=== PATIENT | male | born 1975 | race Caucasian/White ===

== ENCOUNTER 2020-06-08 09:07 | Outpatient (CLI) | payer BC, SELFPAY ==
--- NOTE | 2020-06-23 15:04 | WPDHOMESLEEP ---
Sleep Study - Home Unattended Date of Study: 06/08/20 Ordering Provider: Hugo Brown PA-C Interpreting Provider: Susannah French MD Home Sleep Study Type: Apnea Link Air Height: 1.88 m Weight: 145.15 kg Body Mass Index: 41.1 Neck Circumference (inches): 17 [place]: 9 Reason for Sleep Study Loud snoring, poor sleep, panic attacks Sleep History Alexandre Moore is a 44 year old male who has difficulty sleeping and wakes with panic attacks. He has tried medications which have not helped. He constantly snores and it is frequently loud enough the others others complain about it. He does not awaken at night with heartburn, belching or coughing. Does not awaken from sleep feeling short of breath. He frequently has trouble sleeping with a cold. He rarely wakes up gasping for breath at night. He frequently has breathing problems at night witnessed by others. He occasionally sweats excessively at night he does not notice his heart pounding or beating irregularly at night. He occasionally falls asleep during the day, rarely involuntarily and never while driving. He does not fall asleep while exerting physical effort. He does not have loss of muscle tone with strong emotion. He does not have daytime difficulties due to excessive sleepiness. He does not feel paralyzed on waking or falling asleep nor does he have vivid dreamlike scenes upon awakening or falling asleep. He does not feel afraid to go to sleep. He does not have nightmares. He does not remember his dreams. He does not have racing thoughts. He occasionally feels sad, depressed and anxious. He rarely has muscular tension. He occasionally notices parts of his body jerking. He occasionally kicks at night. He does not have crawling or aching feelings in his legs nor does he have any kind of leg pain at night. He does not have morning jaw pain. He does not grind his teeth during sleep, is not bothered by pain during the day, and does not awaken at night due to pain. He does not wake up feeling stiff in the morning with sore or achy muscles , rarely wakes with pain in the spine. Normal bedtime is 10:00 p.m. falling asleep within 5 minutes to 35 minutes waking once at night for few minutes. He awakens around 2-3 in the morning. He wakes for the day at 4:45 a.m.. On the weekends he may go to bed earlier or later, and wakes later, 7:00 am. He estimates getting 6 hours of sleep at night. he does not generally take naps. A short nap may be refreshing. He feels better in the afternoon compared to earlier in the day. Habits: never smoked tobacco. Caffeine: 2 cups a day. [facility] Past Medical History Medical History Allergies Anxiety Asthma Chronic GERD Hypertension Migraine Family History Family History Father Hypertension Social History Social History Smoking status: Never smoker Alcohol intake: current Substance use: current Medications Home Medications Medication Instructions Recorded Confirmed Type nebivolol 5 mg tablet 5 mg PO DAILY 05/04/20 05/06/20 History amitriptyline 100 mg tablet 25 mg PO .QHS tablet 05/06/20 05/06/20 History celecoxib 200 mg capsule 200 mg PO DAILY cap 05/06/20 05/06/20 History rizatriptan 10 mg tablet 10 mg PO .COMPLEX PRN tablet 05/06/20 05/06/20 History hydrochlorothiazide 25 mg tablet 25 mg PO DAILY #90 tablet 05/12/20 Rx Sleep Procedure This test was performed using 4 channel monitoring including respiratory effort channel, snoring channel, heart rate channel, and oxygen saturation channel. This study was scored using CMS guidelines. Sleep Architecture Not applicable for home sleep test. Respiratory Analysis the recording time is 9 hours 33 minutes. Evaluation time is 9 hours 21 minutes. The apnea-hypopnea index is 15, moderately elevated.
[2020-06-23 15:08] VITALS: BMI 41.1
== END 2020-06-08 09:08 | disposition home or self-care (01) ==
LOC: ANHCSM 09:08
PROVIDERS: PCP Physician Assistant; Visit Provider Physician Assistant
DX: G47.33 Obstructive sleep apnea (adult) (pediatric) (principal)
CPT/HCPCS: 95806

== ENCOUNTER → 2020-07-29 03:31 | Outpatient (CLI) | payer BC, SELFPAY ==
[2020-07-29 19:43] LABS: SARS-CoV-2 RNA PCR Negative
== END ==
PROVIDERS: PCP Internal Medicine; Visit Provider Internal Medicine Critical Care Medicine
DX: Z01.812 Encounter for preprocedural laboratory examination (principal); Z20.822 Contact with and (suspected) exposure to COVID-19
CPT/HCPCS: C9803; U0003; U0005

== ENCOUNTER 2020-08-01 08:40 | Outpatient (CLI) | payer BC, SELFPAY ==
--- NOTE | 2020-08-18 09:15 | WPDSLEEPSTUD ---
Sleep Study Date of Study: 08/01/20 Ordering Provider: Hugo Brown PA-C Interpreting Physician: Susannah French MD Sleep Study Type: CPAP Titration Height: 1.85 m Weight: 145.15 kg Body Mass Index: 42.2 Neck Circumference (inches): 18 [place]: 6 Reason for Sleep Study Home sleep test ApneaLink with moderate obstructive sleep apnea, AHI 15, 59% obstructive, 41% central, 84% lowest saturation Patient rpresents for CPAP titration Sleep History Alexandre Moore is a 44 year old male who has difficulty sleeping and wakes with panic attacks. He has tried medications which have not helped. He constantly snores and it is frequently loud enough the others others complain about it. He does not awaken at night with heartburn, belching or coughing. Does not awaken from sleep feeling short of breath. He frequently has trouble sleeping with a cold. He rarely wakes up gasping for breath at night. He frequently has breathing problems at night witnessed by others. He occasionally sweats excessively at night he does not notice his heart pounding or beating irregularly at night. He occasionally falls asleep during the day, rarely involuntarily and never while driving. He does not fall asleep while exerting physical effort. He does not have loss of muscle tone with strong emotion. He does not have daytime difficulties due to excessive sleepiness. He does not feel paralyzed on waking or falling asleep nor does he have vivid dreamlike scenes upon awakening or falling asleep. He does not feel afraid to go to sleep. He does not have nightmares. He does not remember his dreams. He does not have racing thoughts. He occasionally feels sad, depressed and anxious. He rarely has muscular tension. He occasionally notices parts of his body jerking. He occasionally kicks at night. He does not have crawling or aching feelings in his legs nor does he have any kind of leg pain at night. He does not have morning jaw pain. He does not grind his teeth during sleep, is not bothered by pain during the day, and does not awaken at night due to pain. He does not wake up feeling stiff in the morning with sore or achy muscles , rarely wakes with pain in the spine. Normal bedtime is 10:00 p.m. falling asleep within 5 minutes to 35 minutes waking once at night for few minutes. He awakens around 2-3 in the morning. He wakes for the day at 4:45 a.m.. On the weekends he may go to bed earlier or later, and wakes later, 7:00 am. He estimates getting 6 hours of sleep at night. he does not generally take naps. A short nap may be refreshing. He feels better in the afternoon compared to earlier in the day. Habits: never smoked tobacco. Caffeine: 2 cups a day. [facility] Past Medical History Medical History (Updated 08/18/20 @ 09:18 by Susannah French MD) Allergies Anxiety Asthma Chronic GERD Hypertension Migraine Obstructive sleep apnea Family History Family History Father Hypertension Social History Social History Smoking status: Never smoker Alcohol intake: current Substance use: current Medications Home Medications Medication Instructions Recorded Confirmed Type celecoxib 200 mg capsule 200 mg PO DAILY cap 05/06/20 07/23/20 History rizatriptan 10 mg tablet 10 mg PO .COMPLEX PRN tablet 05/06/20 07/23/20 History hydrochlorothiazide 25 mg tablet 25 mg PO DAILY #90 tablet 05/12/20 07/23/20 Rx amitriptyline 25 mg tablet 25 mg PO QHS #30 tablet 07/12/20 07/23/20 Rx esomeprazole magnesium 40 mg 40 mg PO DAILY #90 cap 07/18/20 07/18/20 Rx capsule,delayed release zolpidem 10 mg tablet 10 mg PO QHS PRN #1 tablet 07/31/20 Rx nebivolol 5 mg tablet 5 mg PO DAILY #90 tablet 08/18/20 Rx Sleep Procedure This test was performed using the Let it Wave multiple channel system including EOG, EEG, submental EMG, EKG, nasal and oral airflow using the
[2020-08-18 09:17] VITALS: BMI 42.2
== END 2020-08-02 07:22 | disposition home or self-care (01) ==
LOC: ANHCSM 08:40
PROVIDERS: PCP Internal Medicine; Visit Provider Physician Assistant
DX: G47.33 Obstructive sleep apnea (adult) (pediatric) (principal)
CPT/HCPCS: 95811

== ENCOUNTER 2021-01-18 12:43 | Emergency (ER) | payer BC, SELFPAY ==
[2021-01-18 12:52] VITALS: BP 136/85; PULSE 102; RESP 14; TEMP 37; O2SAT 99
--- NOTE | 2021-01-18 13:45 | ED.WOUNDLAC ---
HPI - Wound/Laceration General Chief Complaint: Wound/Laceration Stated Complaint: left foot bleeding Time Seen by Provider: 01/18/21 12:58 History of Present Illness HPI narrative: Patient is a 45-year-old male who presents ER with bleeding wound to his left ankle. Reports he scratched himself last night and started to bleed and he could see it squirting. He had recurrence of bleeding today. PCP concerned it could be arterial. Patient has no other concerns. No fevers or chills or sweats. No lightheadedness. He is not on blood thinners. Related Data Home Medications Medication Instructions Recorded Confirmed celecoxib 200 mg capsule 200 mg PO DAILY cap 05/06/20 07/23/20 Allergies Allergy/AdvReac Type Severity Reaction Status Date / Time shellfish derived Allergy Severe THROAT Verified 01/18/21 13:03 ASIA Review of Systems Review of Systems: All systems reviewed & are unremarkable except as noted in HPI and below Constitutional: Constitutional: Denies chills and Denies fever(s) Integumentary/Breasts: Skin/Breast: Denies erythema and Denies rash Comments: Bleeding varicose vein Neurologic: Denies syncope [facility] Past Medical History Medical History Allergies Anxiety Asthma Chronic GERD Hypertension Migraine Obstructive sleep apnea Family History Family History Father Hypertension Social History Social History Smoking status: Never smoker Alcohol intake: current Substance use: current Exam Narrative: GENERAL: Well-appearing, well-nourished, and in no acute distress. HEAD: Normocephalic, atraumatic. EXTREMITIES: Normal range of motion. No edema. Varicose veins to the lower extremities. SKIN: Warm, dry, no rash. Stigmata of bleeding from varicose vein left medial ankle. NEURO: Alert and oriented x3. PSYCH: Normal mood and affect. Course Course Emergency Course: Tetanus shot is up-to-date. Discharge home. Vital Signs Vital signs: Vital Signs Temperature 98.6 F 01/18/21 12:52 Pulse Rate 102 H 01/18/21 12:52 Respiratory Rate 14 01/18/21 12:52 Blood Pressure 136/85 01/18/21 12:52 Pulse Oximetry 99 01/18/21 12:52 Temperature 98.6 F 01/18/21 12:52 Pulse Rate 102 H 01/18/21 12:52 Respiratory Rate 14 01/18/21 12:52 Blood Pressure 136/85 01/18/21 12:52 Pulse Oximetry 99 01/18/21 12:52 Procedures Other Procedure Procedure 1: Other Procedure: A single suture was placed in a [id number] fashion for a bleeding varicose vein. 1.5 mL of lidocaine with epinephrine 1% was used to anesthetize the area. A 4-0 Ethilon suture was used as well. Patient tolerated procedure well without any complications. Discharge Plan Discharge Clinical Impression: Bleeding from varicose vein Patient Disposition: Home, Self-Care Condition: Stable Additional Instructions: You will need to have your sutures removed in 7 to 10 days. Follow-up with your primary care doctor. May also want to discuss referral to a vein center for varicose vein treatment. Return the ER if the area that was sutured becomes red and hot, you develop fever over 100.4 ?F, you have additional concerns. Prescriptions: No Action celecoxib 200 mg capsule 200 mg PO DAILY RF: 0 sertraline 50 mg tablet 50 mg PO DAILY Qty: 90 RF: 1 alprazolam 0.5 mg tablet 0.5 mg PO BID PRN (Reason: anxiety) Qty: 30 RF: 0 triamcinolone acetonide 0.1 % cream 1 applic topical BID Qty: 30 RF: 0 rizatriptan 10 mg tablet 10 mg PO .COMPLEX PRN (Reason: migraine headache) Qty: 9 RF: 2 esomeprazole magnesium [Nexium] 40 mg capsule,delayed release(DR/EC) 40 mg PO DAILY Qty: 90 RF: 1 Bystolic 5 mg tablet 5 mg PO DAILY Qty: 90 RF: 1 amitriptyline 25 mg tablet 25 mg PO QHS Qty: 90 RF: 1 Hol
== END 2021-01-18 14:09 | disposition home or self-care (01) ==
PROVIDERS: Emergency Provider Emergency Medicine; PCP Physician Assistant
DX: I83.892 Varicose veins of left lower extremity with other complications (principal); J45.909 Unspecified asthma, uncomplicated; K21.9 Gastro-esophageal reflux disease without esophagitis; I10 Essential (primary) hypertension; G47.33 Obstructive sleep apnea (adult) (pediatric)
CPT/HCPCS: 12001; 99282

== ENCOUNTER 2022-08-20 19:42 | Emergency (ER) | payer OTHER, SELFPAY ==
--- NOTE | ~2022-08-20 | XR_ITS ---
EXAMINATION: XR shoulder LT min 2V INDICATION: Left shoulder pain, initial encounter TECHNIQUE: Two views of the left shoulder are submitted. COMPARISON: None FINDINGS: There is a displaced and overriding comminuted fracture of the mid clavicle. The distal fra cture fragment is caudally displaced and overriding by 2.5 cm. There is mild osteoarthritis of the ac romioclavicular joint. No additional fracture is identified. IMPRESSION: 1. Mild osteoarthritis of the shoulder. 2. Displaced and overriding comminuted fracture of the left mid clavicle. Reviewed, dictated and finalized at location F.
--- NOTE | ~2022-08-20 | XR_ITS ---
EXAMINATION: XR clavicle LT INDICATION: Left shoulder pain, initial encounter TECHNIQUE: Two views of the left clavicle are obtained. COMPARISON: None available FINDINGS: There is a displaced and overriding comminuted fracture of the mid clavicle. The distal fra cture fragment is caudally displaced and overriding by 2.5 cm. No additional fracture is identified. IMPRESSION: 1. Displaced and overriding comminuted fracture of the left mid clavicle. Reviewed, dictated and finalized at location F.
[2022-08-20 19:43] VITALS: BP 160/77; PULSE 89; RESP 16; TEMP 36.7; O2SAT 95
--- NOTE | 2022-08-20 20:24 | ED.GENADULT ---
HPI - General Adult General Chief complaint: Extremity Injury, Upper Stated complaint: left shoulder/fall Time Seen by Provider: 08/20/22 19:50 History of Present Illness HPI narrative: 46-year-old male presented to the emergency department for evaluation of left arm pain. Patient reports he was playing baseball and tripped going into second base injuring his left shoulder. Patient denies striking head denies loss of consciousness. Patient has pain in his left shoulder. Patient denies any associated numbness or weakness. Related Data Allergies Allergy/AdvReac Type Severity Reaction Status Date / Time shellfish derived Allergy Severe THROAT Verified 08/20/22 19:42 SWELLS Review of Systems Review of Systems: All systems reviewed & are unremarkable except as noted in HPI and below PMFSH Past Medical History Medical History (Reviewed 07/09/21 @ 15:36 by Felisa Parks [facility]) Allergies Anxiety Asthma Chronic GERD Hypertension Migraine Obstructive sleep apnea Family History Family History Father Hypertension Social History Social History Smoking status: Never smoker Alcohol intake: current Substance use: current Exam Narrative: APPEARANCE: Well appearing, no pain, no distress, well-nourished. HEAD: normocephalic, atraumatic. EYES: PERRLA/EOMI, conjunctivae clear. NECK: Supple. No adenopathy, no masses. RESPIRATORY: Airway patent, respirations nonlabored. Clear to auscultation bilaterally, no rales, rhonchi, wheezing. CARDIOVASCULAR: Regular rate and rhythm without murmurs rubs or gallops. ABDOMINAL: Soft, nontender, nondistended, normal bowel sounds MUSCULOSKELETAL: Left clavicle crepitus NEURO: Alert. Cranial nerves II through XII intact. Grossly intact Course Course Emergency Course: 46-year-old male presented the ED for left shoulder pain. X-ray showed no dislocation of the left shoulder but did show a displaced clavicle fracture. Patient was provided a sling for comfort and was encouraged of close follow-up with orthopedics. Patient was also provided medication for pain control. All questions and concerns were addressed. Vital Signs Vital signs: Vital Signs Temperature 98.0 F 08/20/22 19:43 Pulse Rate 89 08/20/22 19:43 Respiratory Rate 16 08/20/22 19:43 Blood Pressure 160/77 H 08/20/22 19:43 Pulse Oximetry 95 08/20/22 19:43 Oxygen Delivery Room Air 08/20/22 19:43 Temperature 98.0 F 08/20/22 19:43 Pulse Rate 89 08/20/22 19:43 Respiratory Rate 16 08/20/22 19:43 Blood Pressure 160/77 H 08/20/22 19:43 Pulse Oximetry 95 08/20/22 19:43 Oxygen Delivery Room Air 08/20/22 19:43 Medical Decision Making Vital Signs Vital Signs: Vital Signs Temperature 98.0 F 08/20/22 19:43 Pulse Rate 89 08/20/22 19:43 Respiratory Rate 16 08/20/22 19:43 Blood Pressure 160/77 H 08/20/22 19:43 Pulse Oximetry 95 08/20/22 19:43 Oxygen Delivery Room Air 08/20/22 19:43 Temperature 98.0 F 08/20/22 19:43 Pulse Rate 89 08/20/22 19:43 Respiratory Rate 16 08/20/22 19:43 Blood Pressure 160/77 H 08/20/22 19:43 Pulse Oximetry 95 08/20/22 19:43 Oxygen Delivery Room Air 08/20/22 19:43 Imaging Data Radiologist's impression: Impressions Clavicle X-Ray 08/20/22 20:05 IMPRESSION: 1. Displaced and overriding comminuted fracture of the left mid clavicle. Shoulder X-Ray 08/20/22 20:09 IMPRESSION: 1. Mild osteoarthritis of the shoulder. 2. Displaced and overriding comminuted fracture of the left mid clavicle. Discharge Plan Discharge Clinical Impression: Clavicle fracture Patient Disposition: Home, Self-Care Condition: Stable Instructions: Antibiotic Form, Clavicle Fracture (ED), How to Use a Sling (ED) Additional Instructions: Ibuprofen for pain control. Flexeril for m
[2022-08-20] MEDS: CYCLOBENZAPRINE HCL 10 MG TABLET PO (20:36)
[2022-08-20] MEDS: HYDROcodone/acetaminophen (*CRX) 5-325 MG TABLET 1 TAB PO (20:36)
[2022-08-20] MEDS: KETOROLAC 30 MG/ML VIAL (*BKC) IM (20:37)
== END 2022-08-20 20:54 | disposition home or self-care (01) ==
PROVIDERS: Emergency Provider Emergency Medicine; PCP Physician Assistant
DX: S42.022A Displaced fracture of shaft of left clavicle, initial encounter for closed fracture (principal); W01.0XXA Fall on same level from slipping, tripping and stumbling without subsequent striking against object, initial encounter; Y93.64 Activity, baseball
CPT/HCPCS: 73000; 73030; 96372; 99284; A4565; A9270; J1885

== ENCOUNTER 2024-01-19 12:03 | Emergency (ER) | payer OTHER, SELFPAY ==
[2024-01-19 12:09] VITALS: BP 127/82; PULSE 63; RESP 18; TEMP 36.6; O2SAT 98
[2024-01-19 12:13] VITALS: BP 127/82; PULSE 63; RESP 18; TEMP 36.6; O2SAT 98
--- NOTE | 2024-01-19 12:18 | ED.URI ---
HPI - URI/Sore Throat General Chief Complaint: Upper Respiratory Infection Stated Complaint: Cough Time Seen by Provider: 01/19/24 12:21 Source: patient, RN notes reviewed and old records reviewed Mode of arrival: ambulatory Limitations: no limitations History of Present Illness HPI Narrative: 48-year-old male presents to [facility] complaints of 1 week duration cough that is productive at times with headache and chest congestion. Patient reports that he is unable to rest due to the continuous coughing Patient reports that he has been taking Mucinex with cough suppressant. Patient reports no known fevers, chills or sweats. MD elicited complaint: cough Onset (ago): week(s) (1) Severity: moderate Treatments prior to arrival: other (Mucinex with cough suppressant) Related Data Home Medications Medication Instructions Recorded Confirmed naratriptan 2.5 mg tablet 2.5 mg PO PRN PRN Headache 01/19/24 01/19/24 Allergies Allergy/AdvReac Type Severity Reaction Status Date / Time shellfish derived Allergy Severe THROAT Verified 01/19/24 12:10 ASIA Review of Systems Review of Systems: CONSTITUTIONAL: Denies malaise, chills, sweats, or fever. EYES: Denies visual changes, redness, or discharge. ENT: Reports rhinorrhea, congestion, sinus pain,no otalgia and no sore throat. CARDIOVASCULAR: Denies chest pain, palpitations, or edema. RESPIRATORY: Reports productive cough.? Denies dyspnea. GASTROINTESTINAL: Denies abdominal pain, nausea, vomiting, diarrhea SKIN: Denies rash or itching. MUSCULOSKELETAL: Denies myalgia. NEUROLOGIC: Reports headache. All systems reviewed & are unremarkable except as noted in HPI and below PMFSH Past Medical History Medical History Allergies Anxiety Asthma Chronic GERD Hypertension Migraine Obstructive sleep apnea Family History Family History Father Hypertension Social History Social History Smoking status: Never smoker Alcohol intake: current Substance use: current Current Housing: Decline to Answer Concerned About Future Housing: Decline to Answer Difficulty Paying Gas/Electric Bills: Decline to Answer Difficulty Paying for Meds: Decline to Answer Currently Unemployed: Decline to Answer Education: Decline to Answer Difficulty w/ Childcare or Family Care: Decline to Answer Comments At time of signature, agree with nursing past medical, surgical, social and family history. There is no relevant family history pertinent to the presenting complaint Exam Narrative: GENERAL: Well-appearing, well-nourished, and in no acute distress. HEAD: Normocephalic EYES: PERRLA, conjunctivae clear ENT: Nares clear, turbinates edematous and erythematous, clear discharge, headache.. Mucous membranes moist. TM pearly marley with dull light reflex bilaterally; no tragal tenderness. Oropharynx erythematous without lesions. Tonsils not enlarged and without exudate, no drooling, no hoarseness, no trismus, uvula midline, post nasal drainage.. NECK: Supple. No lymphadenopathy CHEST: Clear to auscultation, breath sounds equal. No wheezing, rhonchi, rales, or stridor. No respiratory distress, speaks in full sentences.productive cough, SAO2 98% on room air HEART: Regular rate and rhythm. No murmur heard. SKIN: Warm, dry, no rash. NEURO: Alert and oriented x3. PSYCH: Normal mood and affect Course Course Emergency Course: Patient is aware of diagnosis, understands and agrees to treatment plan.? Anticipatory guidance given.? Patient agrees to follow-up as directed and is aware of reasons to seek care at the emergency department. Portions of this record may have been created with voice recognition software Level of Care: Express Care Visit Vital Signs Vital signs: Vital Signs Temperature 36.6 C 01/19/24 12:09 Pulse Rate 63 01/19/24 12:09 Respiratory Rate 18 01/19/24 12:09 Blood Pressure 127/82 01/19/24 12:09 Pulse Oximetry 98 01/19/24 12:09 Oxygen Delivery Room Air 01/19/24 12:09 Temperature 36.6 C 01/19/24 12:13 Pulse Rate 63 01/19/24 12:13 Respiratory Rate 18 01/19/24 12:13 Blood Pressure 127/82 01/19/24 12:13 Pulse Oximetry 98 01/19/24 12:13 Oxygen Delivery Room Air 01/19/24 12:13 Reviewed MDM - URI/Sore Throat MDM Narrative Medical decision making narrative: Differential diagnosis considered: Epps virus, strep pharyngitis, allergic rhinitis, upper respiratory tract infection, sinusitis, rhinosinusitis, nasopharyngitis. viral pharyngitis, otitis media, otitis externa, pneumonia, bronchitis, viral cough syndrome, viral syndrome, and influenza.? Exam findings show no acute concerns or changes; patient is non-toxic appearing and is in no distress.? Patient is appropriate for outpatient treatment and follow-up. Differential Diagnosis Differential diagnosis: Likely upper respiratory infection, sinusitis, viral infection and other (cough) Medical Records Attestation: I reviewed the patient's medical records. Lab Data Attestation: I reviewed the patient's lab results. Critical Care Time Critical Care Time Critical Care Time: No Discharge Plan Discharge Clinical Impression: Acute cough, Sinus drainage Patient Disposition: Home, Self-Care Condition: Stable Instructions: Acute Cough (ED) Additional Instructions: Increase fluids especially juices and water [id number] cough and cold medicine of your choice for your symptoms Prescription cough medicine as directed--caution drowsiness and no driving or alcohol Zyrtec Claritin or Abi daily include Coricidin brand decongestant Tylenol or ibuprofen for any fever pain Continue your inhaler/nebulizer as directed Steroids as directed--take with food heat to the face 20-30 minutes 4-6 times a day for pain Salt water gargles, throat lozenges or throat sprays as desired If your symptoms persist, change or worsen significantly before you can contact your personal physician then please, without delay, go to the emergency department for further evaluation. Follow-up with PCP in 7-10 days or sooner if needed Follow up with PCP soon in regards to your blood pressure which is elevated above threshold for referral. Blood pressure above 120/80 may indicate pre-hypertension. minimal elevation at 127/82 Prescriptions: New prednisone 20 mg tablet 20 mg PO BID Qty: 10 0RF Rx Instructions: take am and afternoon prior to 6 pm eat with medication codeine-guaifenesin 10-200 mg/5 mL liquid 10 ml PO Q4-6H PRN (Reason: cough) Qty: 200 0RF fluticasone propionate [Flonase Allergy Relief] 50 mcg/actuation spray,suspension 2 spray intranasal DAILY Qty: 16 0RF Rx Instructions: administer into each nostril No Action naratriptan 2.5 mg tablet 2.5 mg PO PRN PRN (Reason: Headache) hydrochlorothiazide 25 mg tablet 25 mg PO DAILY Qty: 90 2RF alprazolam 0.5 mg tablet 0.5 mg PO BID PRN (Reason: anxiety) Qty: 30 0RF metoprolol succinate 50 mg tablet extended release 24 hr 50 mg PO DAILY Qty: 90 1RF Follow-up/Referrals: PHYSICIAN,BUSINESS ANALYST MANAGER [Primary Care Provider] - Time of Disposition: 12:53 Quality [place] Coma Scale Eyes: Open Verbal: Oriented and Alert Motor: Follows Commands Jemal Coma Total Score: 15
== END 2024-01-19 12:53 | disposition home or self-care (01) ==
PROVIDERS: Emergency Provider Registered Nurse
DX: R05.1 Acute cough (principal); J34.89 Other specified disorders of nose and nasal sinuses; I10 Essential (primary) hypertension; J45.909 Unspecified asthma, uncomplicated; K21.9 Gastro-esophageal reflux disease without esophagitis
CPT/HCPCS: 99213; G0463